=== PATIENT | female | born 1995 | race African-American/Black ===

== ENCOUNTER 2021-09-29 08:38 | Emergency (ER) | payer BC ==
[2021-09-29] MEDS ORDERED: Alum Hydrox/Mag Hydrox/Simeth 30 ML, Lidocaine 2% 15 ML PO ONE ×2 (10:57)
[2021-09-29] MEDS ORDERED: Magnesium Citrate Solution 296 ML Bottle PO ONE (10:57)
== END 2021-09-29 14:10 ==
LOC: JD.ED 08:38
DX: R10.10 Upper abdominal pain, unspecified (principal); F32.A Depression, unspecified; F17.210 Nicotine dependence, cigarettes, uncomplicated; Z20.822 Contact with and (suspected) exposure to COVID-19
CPT/HCPCS: 36415; 80053; 80143; 80179; 80306; 80307; 81025; 83690; 84443; 85025; 87635; 99284; A9270; U0002